=== PATIENT | female | born 1985 | race Caucasian/White ===

== ENCOUNTER 2019-03-24 04:06 | Outpatient (CLI) | payer OTHER ==
[~2019-03-24] VITALS: Ht 162.6 cm; Wt 70.0 kg
[2019-03-24 04:38] VITALS: BP 113/76
[2019-03-24 04:57] LABS: MICROSCOPIC INDICATED
[2019-03-24 05:05] LABS: AMPHETAMINE SCREEN, URINE Negative (Negative); BARBITURATE SCREEN, URINE Negative (Negative); BENZODIAZEPINE SCREEN, URINE Negative (Negative); CANNABINOID SCREEN, URINE Negative (Negative); COCAINE SCREEN, URINE Negative (Negative); METHADONE SCREEN, URINE Negative (Negative); OPIATE SCREEN, URINE Negative (Negative)
[2019-03-24] MEDS ORDERED: LACTATED RINGERS 1,000 ML IV SCH (06:44)
[2019-03-24] MEDS ORDERED: LACTATED RINGERS 1,000 ML IV PRN (06:44)
[2019-03-24] MEDS ORDERED: TERBUTALINE 1 MG/ML, 1ML SQ PRN (07:00)
[2019-03-24] MEDS ORDERED: TERBUTALINE 1 MG/ML, 1ML ONE (07:09)
== END 2019-03-24 08:49 | disposition home or self-care (01) ==
LOC: LDOP 04:06 → LDIP 06:00 → UNDOADMOB 06:00 → LDOP 08:49 → UNDODISOB 08:49
PROVIDERS: ATTEND Obstetrics & Gynecology
DX: O60.03 Preterm labor without delivery, third trimester (principal); Z3A.36 36 weeks gestation of pregnancy
CPT/HCPCS: 59025; 80307; 81001; 87086; 96360; 96372; 99201; J3105; J7120; 96367; G0378; G0463